=== PATIENT | female | born 1960 | race Caucasian/White ===

== ENCOUNTER 2017-08-31 10:38 | Emergency (ER) | payer SELFPAY ==
[~2017-08-31] VITALS: Ht 165.1 cm; Wt 92.7 kg
[~2017-08-31 10:38] MED LIST: ADIPEX-P37.5 MG PO; CYANOCOBALAM1000 MCG PO; LIDODERM 5% P1 PATCH TD; LOMOTIL TABLET1 EACH PO; MEDROL DOSEPAK4 MG PO; MULTIVITAMIN1 EAC2 PO; PERCOCET 5/31 TABLET PO; PROMETHAZINE HC25 M1 PO; ZYRTEC10 M3 PO
[2017-08-31] MEDS ORDERED: TAMIFLU75 MG PO (12:34)
[2017-08-31 12:51] VITALS: BP 135/91
== END 2017-08-31 12:51 | disposition home or self-care (01) ==
LOC: EME 10:38
DX: J11.1 Influenza due to unidentified influenza virus with other respiratory manifestations (principal); M06.9 Rheumatoid arthritis, unspecified; Z88.5 Allergy status to narcotic agent
CPT/HCPCS: 71046; 99281; 99283

== ENCOUNTER → 2017-12-25 | Outpatient (CLI) | payer SELFPAY ==
[~2017-12-25] MED LIST changes: +TAMIFLU75 MG PO
== END | disposition home or self-care (01) ==
LOC: RAD 11:53
DX: M25.552 Pain in left hip (principal); M25.562 Pain in left knee; R26.9 Unspecified abnormalities of gait and mobility
CPT/HCPCS: 73502; 73564